=== PATIENT | female | born 2000 | race Caucasian/White ===

== ENCOUNTER 2020-08-08 10:26 | Emergency (ER) | payer SELFPAY ==
[~2020-08-08] VITALS: Ht 162.6 cm; Wt 52.2 kg
[2020-08-08 13:10] VITALS: BP 116/71
== END 2020-08-08 16:02 | disposition home or self-care (01) ==
LOC: ER 10:26
DX: M25.531 Pain in right wrist (principal); H57.11 Ocular pain, right eye; R51.9 Headache, unspecified; F17.210 Nicotine dependence, cigarettes, uncomplicated
CPT/HCPCS: 70486; 73110